=== PATIENT | female | born 1955 | race Caucasian/White ===

== ENCOUNTER 2022-09-08 19:39 | Emergency (ER) | payer OTHER ==
[~2022-09-08] VITALS: Ht 157.5 cm; Wt 68.0 kg
[2022-09-08] MEDS ORDERED: ZESTRIL20 MG PO (20:10)
[2022-09-08] MEDS ORDERED: ZESTRIL10 M1 PO (20:10)
[2022-09-08] MEDS ORDERED: LEVOTHYROXINE25 MC2 PO (20:11)
== END 2022-09-08 23:46 | disposition home or self-care (01) ==
LOC: ER 19:39
DX: S42.391A Other fracture of shaft of right humerus, initial encounter for closed fracture (principal); W18.39XA Other fall on same level, initial encounter; Y93.89 Activity, other specified; Y92.520 Airport as the place of occurrence of the external cause